=== PATIENT | female | born 1965 | race Caucasian/White ===

== ENCOUNTER → 2018-01-06 | Outpatient (CLI) | payer OTHER ==
[~2018-01-06] MED LIST: ATORVASTATIN CA40 MG PO; FLEXERIL10 MG PO; FLEXERIL5 MG PO; GLUCOPHAGE500 MG PO; HYDROCHLOROTH12.5 M1; HYDROCHLOROTHIA25 MG PO; IBUPROFEN800 MG PO; NORVASC10 MG; NORVASC10 MG PO; PREVACID SOLUTA30 MG PO; PREVACID30 MG; PREVACID30 MG PO; PRILOSEC40 MG PO; TRAMADOL HCL50 MG PO
== END | disposition home or self-care (01) ==
LOC: EKG 13:54
DX: I51.7 Cardiomegaly (principal)
CPT/HCPCS: 93306